=== PATIENT | female | born 1970 | race Caucasian/White ===

== ENCOUNTER 2024-04-15 14:56 | Outpatient (CLI) | payer OTHER | END 2024-04-15 14:57 | disposition home or self-care (01) | LOC: BICMAMMO 14:56 | PROVIDERS: ATTEND Family Medicine | DX: M47.22 Other spondylosis with radiculopathy, cervical region (principal); M43.12 Spondylolisthesis, cervical region; M46.02 Spinal enthesopathy, cervical region | CPT/HCPCS: 72040; 77063; 77067 ==

== ENCOUNTER 2024-04-25 15:39 | Outpatient (CLI) | payer OTHER | END 2024-04-25 15:40 | disposition home or self-care (01) | LOC: BICRAD 15:39 | PROVIDERS: ATTEND Family Medicine | DX: M54.41 Lumbago with sciatica, right side (principal); M54.42 Lumbago with sciatica, left side; G89.29 Other chronic pain; M47.26 Other spondylosis with radiculopathy, lumbar region; M43.16 Spondylolisthesis, lumbar region | CPT/HCPCS: 72100 ==

== ENCOUNTER 2025-01-25 13:58 | Outpatient (CLI) | payer OTHER | END 2025-01-25 13:59 | disposition home or self-care (01) | LOC: SCSMRI 13:58 | PROVIDERS: ATTEND Family Medicine | DX: M51.16 Intervertebral disc disorders with radiculopathy, lumbar region (principal); M47.26 Other spondylosis with radiculopathy, lumbar region | CPT/HCPCS: 72148 ==

== ENCOUNTER 2025-03-01 20:48 | Emergency (ER) | payer OTHER ==
[2025-03-01 21:29] LABS: #Basophils Less than 0.03 10x3/uL (0.0-0.2); #Eosinophils 0.11 10x3/uL (0.0-0.7); #Monocytes 0.51 10x3/uL (0.11-0.59); #Neutrophils 3.55 10x3/uL (1.40-6.50); %Basophils 0.3 % (0.0-1.0); %Eosinophils 1.6 % (0.0-10.0); %Lymphocytes 38.0 % (21.0-51.0); %Monocytes 7.5 % (0.0-10.0); %Neutrophils 52.5 % (42.0-75.0); Hematocrit 36.3 % (36.0-47.0); Hemoglobin 11.7 g/dL (12.0-16.0); Mean Corpuscular Hemoglobin 29.1 pg (27.0-31.0); Mean Corpuscular Volume 90.3 fL (78.0-98.0); Platelet Count 209 10x3/uL (130-400); Red Blood Cell (RBC) Count 4.02 mill/uL (4.20-5.40); White Blood Cell (WBC) Count 6.77 10x3/uL (4.8-10.8)
[2025-03-01 21:54] LABS: ALT (SGPT) 19 U/L (Less than 34); AST (SGOT) 22 U/L (11-34); Albumin 3.4 g/dL (3.1-4.5); Alkaline Phosphatase 67 U/L (40-110); Anion Gap 13 mmol/L (10-20); BUN (Urea Nitrogen) 18 mg/dL (9.8-20.1); Bilirubin, Total 0.4 mg/dL (0.3-1.2); Calc. Creatinine Clearance 0 mL/min (70-130); Calcium 9.0 mg/dL (7.8-10.44); Carbon Dioxide 27 mmol/L (22-29); Chloride 108 mmol/L (98-107); Globulin 3.1 g/dL (2.4-3.5); Glucose 104 mg/dL (70-105); Potassium 2.9 mmol/L (3.5-5.1); Sodium 145 mmol/L (136-145)
== END 2025-03-01 23:32 | disposition home or self-care (01) ==
LOC: ERS 20:48
DX: R55 Syncope and collapse (principal); E87.6 Hypokalemia; I10 Essential (primary) hypertension
CPT/HCPCS: 71045; 80053; 84484; 85025; 93005; 94760